=== PATIENT | male | born 1995 | race Caucasian/White ===

== ENCOUNTER 2016-12-10 08:22 | Emergency (ER) | payer OTHER ==
[~2016-12-10] VITALS: Ht 170.2 cm; Wt 71.2 kg
[2016-12-10 08:27] VITALS: TEMP 36.6; Ht 170.2 cm; Wt 71.2 kg
[2016-12-10] MEDS ORDERED: ONDANSETRON INJ 2 MG/ML 2 ML VIAL IV STA (08:58)
[2016-12-10] MEDS ORDERED: SODIUM CHLORIDE 0.9% 1000ML 1,000 ML IV STA (08:58)
[2016-12-10] MEDS ORDERED: ESOM20CA PO (09:01)
[2016-12-10 09:53] LABS: HEMATOCRIT 45.8 % (42-52); MEAN CELL VOLUME 82.7 fL (80-100); MEAN CORPUSCULAR HGB CONC 37.6 g/dl (32-36); MEAN PLATELET VOLUME 10.9 fL (7.4-10.4); PLATELET COUNT 281 K/uL (130-400); RED BLOOD COUNT 5.54 M/uL (4.7-6.1)
[2016-12-10 10:06] LABS: BLOOD UREA NITROGEN 11 mg/dl (7-18); BUN/CREATININE RATIO 13.5 (10-20); CALCIUM 9.7 mg/dl (8.5-10.1); CARBON DIOXIDE 24 mmol/L (21-32); CHLORIDE 103 mmol/L (98-107); CREATININE 0.78 mg/dl (0.60-1.40); GLUCOSE 148 mg/dl (70-99); POTASSIUM 3.3 mmol/L (3.5-5.1); SODIUM 139 mmol/L (136-145)
[2016-12-10 10:10] LABS: BASO % 0.1 %; BASO ABS # 0.01 K/uL (0-0.2); COMPLETE YES; IG% 0.3 %; LYMPH % 8.2 %; LYMPH ABS # 0.97 K/uL (1.2-3.4); MONO % 2.6 %; NEUT % 88.8 %
[2016-12-10 10:21] LABS: ALB/GLOB RATIO 1.4 (0.9-2); ALKALINE PHOSPHATASE 69 U/L (45-117); ALT/SGPT 24 U/L (12-78); AMYLASE 50 U/L (25-115); AST/SGOT 12 U/L (15-37)
[2016-12-10] MEDS ORDERED: PROM25TA9 PO (10:40)
[2016-12-10 10:45] VITALS: BP 157/93; PULSE 103; O2SAT 96
--- NOTE | 2016-12-10 18:26 | EMERGENCY ROOM VISIT NOTE ---
History First contact with patient: 08:44 Chief Complaint: ABDOMINAL PAIN Stated Complaint: NAUSEA, STOMACH PAIN Nursing Triage Summary: Patient c/o mid abd pain, n/v since 10pm. History of Present Illness The patient is a 21 year old white male who presents to the Emergency Room with complaints of mid abdominal pain that began around 10 PM last night. Patient states he has had alcoholic gastritis as well as pancreatitis in the past. He states he had 2 or 3 alcoholic beverages last night. He developed nausea and vomiting shortly after. He continues to have abdominal pain this point. He is requesting hydration and Zofran. He states he has had endoscopy in the past and has a follow-up with GI December 16 for reexamination. No diarrhea. No fevers or chills. A female friend accompanies him today. Review of Systems REVIEW OF SYSTEM: HEENT: No dizziness, visual problems, hearing loss, or tinnitus. There is no difficulty swallowing and no oral lesions are present. PULMONARY: No cough, shortness of breath, sputum production or hemoptysis. CARDIOVASCULAR: No chest pain, palpitations, shortness of breath or peripheral edema. GASTROINTESTINAL: No diarrhea or constipation. Positive nausea, vomiting, and abdominal pain. GENITOURINARY: No dysuria, frequency, urgency or nocturia. NEUROLOGIC: No weakness, muscle tenderness, epilepsy or history of neurological problems. MUSCULOSKELETAL: No history of joint tenderness/swelling. No history of arthritis or arthralgias. SKIN: No rashes or lesions. PSYCHIATRIC: No history of depression or mental illness. ENDOCRINE: No history of diabetes, thyroid disorders, or abnormal hair growth. Past Medical/Surgical History Previous surgeries: Endoscopy Medical history: Significant for alcoholic gastritis and pancreatitis. Family History Noncontributory. Social History Smoking Status: Current Every Day Smoker Smokeless Tobacco Use: No Alcohol Use: occasionally Drug Use: none Marital Status: single Housing Status: lives with roommate Occupation Status: student Current/Historical Medications Scheduled Esomeprazole Magnesium (Nexium), 20 MG PO DAILY Scheduled PRN Promethazine Hcl (Phenergan), 25 MG PO Q6H PRN for Nausea Allergies Uncoded Allergies: NO KNOWN ALLERGIES (Allergy, Unknown, ., 12/10/16) Physical Exam Vital Signs Date Time Temp Pulse Resp B/P Pulse Ox O2 Delivery O2 Flow Rate FiO2 12/10/16 10:45 103 17 157/93 96 Room Air 12/10/16 09:28 59 18 149/81 98 Room Air 12/10/16 08:27 36.6 62 18 163/91 99 Room Air Pain Rating (0-10): 2.0 Physical Exam Gen.: Well-developed, well-nourished, young white male, in no acute distress. Laying on a bed. Alert and oriented. Skin:Warm and dry with good turgor. No rashes or lesions. No ecchymosis or erythema. The patient is not diaphoretic. No abrasions. HEENT: Normocephalic atraumatic. Eyes PERRLA, EOMI. No conjunctiva or scleral injection. Nares patent bilaterally without turbinate enlargement. No significant drainage. No epistaxis. Oropharynx without erythema or exudate. Uvula midline, oral mucosa moist. No lesions present. Heart: Heart RRR. No MGR. Peripheral pulses are 2+. Lungs: Lungs are clear to auscultation. No crackles rhonchi or wheezing. Good air movement. The patient is able to take a deep breath. Abdomen: Abdomen was inspected, auscultated, and palpated. Bowel sounds present x 4. Soft, epigastric tenderness to palpation. No hepato-splenomegaly. No masses noted. No rebound, negative Caldwell sign. No pain over McBurney's point. No CVA tenderness. Musculoskeletal: Gross motor function of the upper and lower extremities is intact and unremarkable. Medical Decision & Procedures Laboratory Results 12/10/16 09:20 Red Blood Count 5.54, Mean Corpuscular Volume 82.7, Mean Corpuscular Hemoglobin 31.0, Mean Corpuscular Hemoglobin Concent 37.6, Mean Platelet Volume 10.9, Neutrophils (%) (Auto) 88.8, Lymphocytes (%) (Auto) 8.2, Monocytes (%) (Auto) 2.6, Eosinophils (%) (Auto) 0.0, Basophils (%) (Auto) 0.1, Neutrophils # (Auto) 10.48, Lymphocytes # (Auto) 0.97, Monocytes # (Auto) 0.31, Eosinophils # (Auto) 0.00, Basophils # (Auto) 0.01 12/10/16 09:20 Test 12/10/16 09:20 White Blood Count 11.80 K/uL (4.8-10.8) Red Blood Count 5.54 M/uL (4.7-6.1) Hemoglobin 17.2 g/dL (14.0-18.0) Hematocrit 45.8 % (42-52) Mean Corpuscular Volume 82.7 fL (80-100) Mean Corpuscular Hemoglobin 31.0 pg (25-34) Mean Corpuscular Hemoglobin Concent 37.6 g/dl (32-36) Platelet Count 281 K/uL (130-400) Mean Platelet Volume 10.9 fL (7.4-10.4) Neutrophils (%) (Auto) 88.8 % Lymphocytes (%) (Auto) 8.2 % Monocytes (%) (Auto) 2.6 % Eosinophils (%) (Auto) 0.0 % Basophils (%) (Auto) 0.1 % Neutrophils # (Auto) 10.48 K/uL (1.4-6.5) Lymphocytes # (Auto) 0.97 K/uL (1.2-3.4) Monocytes # (Auto) 0.31 K/uL (0.11-0.59) Eosinophils # (Auto) 0.00 K/uL (0-0.5) Basophils # (Auto) 0.01 K/uL (0-0.2) RDW Standard Deviation 37.6 fL (36.4-46.3) RDW Coefficient of Variation 12.5 % (11.5-14.5) Immature Granulocyte % (Auto) 0.3 % Immature Granulocyte # (Auto) 0.03 K/uL (0.00-0.02) Red Blood Cell Morphology Unremarkable Anion Gap 12.0 mmol/L (3-11) Est Creatinine Clear Calc Drug Dose 141.3 ml/min Estimated GFR () > 150.0 Estimated GFR (Non- 129.9 BUN/Creatinine Ratio 13.5 (10-20) Calcium Level 9.7 mg/dl (8.5-10.1) Total Bilirubin 0.5 mg/dl (0.2-1) Aspartate Amino Transf (AST/SGOT) 12 U/L (15-37) Alanine Aminotransferase (ALT/SGPT) 24 U/L (12-78) Alkaline Phosphatase 69 U/L (45-117) Total Protein 8.3 gm/dl (6.4-8.2) Albumin 4.8 gm/dl (3.4-5.0) Globulin 3.5 gm/dl (2.5-4.0) Albumin/Globulin Ratio 1.4 (0.9-2) Amylase Level 50 U/L (25-115) Lipase 119 U/L (73-393) CBC and chem panel were obtained. They're unremarkable other than mildly low potassium. Amylase and lipase were normal. Medications Administered Medications (Trade) Dose Ordered Sig/Zeferino Route Start Time Stop Time Status Last Admin Dose Admin Sodium Chloride (Nss 1000ml) 1,000 ml @ 999 mls/hr Q1H1M STAT IV 12/10/16 08:58 12/10/16 09:58 DC 12/10/16 09:25 999 MLS/HR Ondansetron HCl (Zofran Inj) 4 mg NOW STAT IV 12/10/16 08:58 12/10/16 09:02 DC 12/10/16 09:25 4 MG Zofran 4 mg IV, 1 L normal sterile saline IV bolus ED Course Patient was educated regarding today's findings. Conservative care measures were discussed. IV was established. Labs were obtained. He was given Zofran 4 mg IV. He was also hydrated with 1 L normal sterile saline IV bolus. Patient was reevaluated and stated he felt better. Prescription was given for Phenergan 25 mg to be used every 6 hours as needed for any continued nausea. He should follow-up with his patient service representative as scheduled. Return to the ED for any other concerns. He was reminded to avoid alcohol and oral anti- inflammatories. He may use Tylenol if desired. Medical Decision Possibility of bowel obstruction, pancreatitis, gastroenteritis, gastritis, cholecystitis, and appendicitis were considered. Impression Primary Impression: Alcoholic gastritis Departure Information Dispostion Home / Self-Care Condition GOOD Prescriptions Promethazine Hcl (Phenergan) 25 Mg Tab 25 MG PO Q6H Y for Nausea, #12 TAB Prov: Shashank Garcia,P.A. 12/10/16 Forms DIET INSTRUCTION CL LIQUIDS, HOME CARE DOCUMENTATION FORM, TYLENOL USE, IMPORTANT VISIT INFORMATION Patient Instructions [facility] Additional Instructions Avoid alcohol today Maintain hydration Tylenol every 6 hours as needed for discomfort Phenergan 25 mg every 6 hours as needed for any continued nausea Follow-up with your patient service representative on December 16 as scheduled Return to the ED for any other concerns
== END 2016-12-10 10:58 | disposition home or self-care (01) ==
LOC: C.EDB 08:28 → C.EDA 10:58
DX: K29.20 Alcoholic gastritis without bleeding (principal); F17.210 Nicotine dependence, cigarettes, uncomplicated; Z79.899 Other long term (current) drug therapy